=== PATIENT | female | born 1990 | race Caucasian/White ===

== ENCOUNTER 2016-09-21 15:47 | Emergency (ER) | payer SELFPAY ==
[~2016-09-21] VITALS: Ht 167.6 cm; Wt 56.5 kg
[~2016-09-21 15:47] MED LIST: NAPR500 PO
[2016-09-21 15:48] VITALS: BP 139/64; PULSE 103; RESP 18; TEMP 98.9; O2SAT 97
--- NOTE | 2016-09-21 15:57 | PD ---
Physical Exam Time Seen by Provider: 15:54 Narrative 26yo F c/o swelling, tightness, and pain in the back opf both legs since Monday with worsening yesterday. Nitesh injury. Worse in R leg. Also c/o pains in both arms and chest pain "for awhile." Reports feeling like her heart is racing at times. Denies SOB. Reports tobacco use. Patient seen in triage. VS reviewed. Awaiting bed placement. Data Data Last Documented VS Vital Signs Date Time Temp Pulse Resp B/P Pulse Ox O2 Delivery O2 Flow Rate FiO2 09/21/16 15:48 98.9 103 18 139/64 97 Room Air MDM Supervised Visit with SHANA: Sheila Lennon Sep 21, 2016 15:57
[2016-09-21] MEDS ORDERED: SODIUM CHLOR 0.9% 1000 ML INJ 1,000 ML IV SCH (16:52)
--- NOTE | 2016-09-21 16:55 | PD ---
HPI Chief Complaint: Pain: Acute or Chronic Time Seen by Provider: 16:45 Travel History International Travel<30 days: No Contact w/Intl Traveler<30days: No Traveled to known affect area: No History of Present Illness HPI 26-year-old female with no significant past medical history presents for evaluation of myalgias. Symptoms started 3 days ago. She describes it as a "tightness" in her thighs, calves, arms, chest. Symptoms are worse in her posterior thighs bilaterally. Symptoms are worse when walking. She denies any shortness of breath, nausea or vomiting, abdominal pain, fevers or chills, IV drug abuse. She denies any strenuous activity. She has never had this problem before. No other complaints. [facility] Past Medical History Diminished Hearing: No ?: Not LMP: 08/23/16 Past Surgical History Other Surgery: Yes (RHINOPLASTY) Social History Alcohol Use: No Tobacco Use: Yes (1 PPD) Substance Use: No Allergies-Medications (Allergen,Severity, Reaction): Coded Allergies: Sulfa (Verified Allergy, Intermediate, rash, 09/21/16) Reported Meds & Prescriptions Reported Meds & Active Scripts Active Baclofen 10 Mg Tab 10 Mg PO Q8HR PRN [address] (Diclofenac Sodium) 75 Mg Tabdr 75 Mg PO BID 7 Days Review of Systems Except as stated in HPI: all other systems reviewed are Neg Physical Exam Narrative GENERAL: Well-developed well-nourished female in no acute distress SKIN: Warm and dry. No edema, bruising, soft tissue swelling HEAD: Atraumatic. Normocephalic. EYES: Pupils equal and round. No scleral icterus. No injection or drainage. ENT: No nasal bleeding or discharge. Mucous membranes pink and moist. NECK: Trachea midline. No JVD. CARDIOVASCULAR: Regular rate and rhythm. No murmur appreciated. RESPIRATORY: No accessory muscle use. Clear to auscultation. Breath sounds equal bilaterally. GASTROINTESTINAL: Abdomen soft, non-tender, nondistended. Hepatic and splenic margins not palpable. MUSCULOSKELETAL: No obvious deformities. Full spontaneous range of motion of the upper and lower extremities. No edema in the upper or lower extremities. There is some tenderness to palpation to the posterior thighs bilaterally. No weakness. NEUROLOGICAL: Awake and alert. No obvious cranial nerve deficits. Motor grossly within normal limits. Normal speech. Data Data Last Documented VS Vital Signs Date Time Temp Pulse Resp B/P Pulse Ox O2 Delivery O2 Flow Rate FiO2 09/21/16 18:13 17 09/21/16 15:48 98.9 103 139/64 97 Room Air Orders Creatine Kinase (Cpk) (09/21/16 16:52) Basic Metabolic Panel (Bmp) (09/21/16 16:52) Complete Blood Count With Diff (09/21/16 16:52) Magnesium (Mg) (09/21/16 16:52) Urinalysis - C+S If Indicated (09/21/16 16:52) Sodium Chlor 0.9% 1000 Ml Inj (Ns 1000 M (09/21/16 16:52) Ketorolac Inj (Toradol Inj) (09/21/16 17:00) Ed Urine Pregnancytest Poc (09/21/16 16:52) Orphenadrine Inj (Norflex Inj) (09/21/16 17:00) Electrocardiogram (09/21/16 ) Labs Laboratory Tests Test 09/21/16 17:00 White Blood Count 10.2 TH/MM3 Red Blood Count 4.43 MIL/MM3 Hemoglobin 13.5 GM/DL Hematocrit 39.4 % Mean Corpuscular Volume 88.9 FL Mean Corpuscular Hemoglobin 30.5 PG Mean Corpuscular Hemoglobin 34.3 % Concent Red Cell Distribution Width 12.9 % Platelet Count 271 TH/MM3 Mean Platelet Volume 10.1 FL Neutrophils (%) (Auto) 58.4 % Lymphocytes (%) (Auto) 27.5 % Monocytes (%) (Auto) 11.6 % Eosinophils (%) (Auto) 1.8 % Basophils (%) (Auto) 0.7 % Neutrophils # (Auto) 5.9 TH/MM3 Lymphocytes # (Auto) 2.8 TH/MM3 Monocytes # (Auto) 1.2 TH/MM3 Eosinophils # (Auto) 0.2 TH/MM3 Basophils # (Auto) 0.1 TH/MM3 CBC Comment DIFF FINAL Differential Comment Urine Color YELLOW Urine Turbidity HAZY Urine pH 5.5 Urine Specific Sebastian 1.031 Urine Protein TRACE mg/dL Urine Glucose (UA) NEG mg/dL Urine Ketones NEG mg/dL Urine Occult Blood MOD Urine Nitrite NEG Urine Bilirubin NEG Urine Urobilinogen LESS THAN 2.0 MG/DL Urine Leukocyte Esterase NEG Urine RBC 1 /hpf Urine WBC 1 /hpf Urine Squamous Epithelial 7 /hpf Cells Urine Mucus MANY /lpf Microscopic Urinalysis Comment CULT NOT INDICATED Sodium Level 138 MEQ/L Potassium Level 4.6 MEQ/L Chloride Level 105 MEQ/L Carbon Dioxide Level 28.0 MEQ/L Anion Gap 5 MEQ/L Blood Urea Nitrogen 12 MG/DL Creatinine 0.71 MG/DL Estimat Glomerular Filtration 99 ML/MIN Rate Random Glucose 55 MG/DL Calcium Level 9.1 MG/DL Magnesium Level 2.2 MG/DL Total Creatine Kinase 135 U/L [facility] Medical Decision Making Medical Screen Exam Complete: Yes Emergency Medical Condition: Yes Medical Record Reviewed: Yes Interpretation(s) EKG normal sinus rhythm Differential Diagnosis Myalgias, electrolyte disturbance, dehydration, rhabdomyolysis Narrative Course 26-year-old female who has been experiencing myalgias in her legs, chest and arms for the past 3 days, symptoms are worse in the posterior thighs bilaterally. Physical examination reveals no obvious abnormality. She appears well. Plan is for basic lab work, EKG, IV fluids, Toradol and Norflex. The patient's lab work is unremarkable and reassuring. Upon examination she does feel better. Etiology for this patient's myalgias is unknown. The patient is being discharged with baclofen and diclofenac, recommend outpatient follow-up with primary care physician. Procedures EKG Prior to Arrival: Yes Diagnosis Primary Impression: Myalgia Additional Instructions: Medication as needed. Take diclofenac with meals. Do not drive or drink alcohol when taking baclofen. Stay well hydrated and well-nourished. Follow- up closely with primary care physician. Return for any emergent medical conditions. Med/Other Pt SpecificInfo: Prescription(s) given Scripts Baclofen 10 Mg Tab10 Mg PO Q8HR PRN (MUSCLE SPASM) 7 Days Ref 0 Prov:Iban Colin MD 09/21/[address] 75 Mg Tabdr75 Mg PO BID 7 Days Ref 0 Prov:Iban Colin MD 09/21/16 Disposition: 01 DISCHARGE HOME Condition: Stable Mart Gonzalez Sep 21, 2016 16:55
[2016-09-21] MEDS ORDERED: KETOROLAC TROMETHAMINE 30 MG/ML (IVP) VIAL IVP ONE (17:00)
[2016-09-21] MEDS ORDERED: ORPHENADRINE INJ 60 MG/2 ML AMP IV ONE (17:00)
[2016-09-21 17:45] LABS: AUTOMATED NEUTROPHIL # 5.9 TH/MM3 (1.8-7.7); BASOPHIL # 0.1 TH/MM3 (0-0.2); BASOPHIL % 0.7 % (0.0-2.0); EOSINOPHIL # 0.2 TH/MM3 (0-0.4); EOSINOPHIL % 1.8 % (0.0-4.0); HEMATOCRIT 39.4 % (35.0-46.0); HEMO FLAGS DIFF FINAL; LYMPH % 27.5 % (9.0-44.0); LYMPHOCYTE # 2.8 TH/MM3 (1.0-4.8); MEAN CELL VOLUME 88.9 FL (80.0-100.0); MEAN CORPUSCULAR HEMOGLOBIN 30.5 PG (27.0-34.0); MEAN CORPUSCULAR HGB CONC 34.3 % (32.0-36.0); MONO % 11.6 % (0.0-8.0); NEUT % 58.4 % (16.0-70.0); PLATELET COUNT 271 TH/MM3 (150-450); RED BLOOD COUNT 4.43 MIL/MM3 (4.00-5.30); RED CELL DISTRIBUTION WIDTH 12.9 % (11.6-17.2); WHITE BLOOD COUNT 10.2 TH/MM3 (4.0-11.0)
[2016-09-21 18:01] LABS: BLOOD, URINE MOD (NEG); COMMENT (UR) CULT NOT INDICATED; CULTURE IF INDICATED CULT NOT INDICATED; GLUCOSE,URINE NEG (NEG); KETONE, URINE NEG (NEG); MUCUS URINE MANY /lpf (OCC); NITRITE,URINE NEG (NEG); PH, URINE 5.5 (5.0-8.5); SQUAMOUS EPITHELIAL CELL URINE 7 /hpf (0-5); URINE COLOR YELLOW (YELLW/STRAW)
[2016-09-21 18:13] VITALS: RESP 17
[2016-09-21 18:18] LABS: MAGNESIUM 2.2 MG/DL (1.5-2.5)
[2016-09-21 18:22] LABS: POTASSIUM 4.6 MEQ/L (3.5-5.1)
[2016-09-21] MEDS ORDERED: DICL75TA PO (18:27)
[2016-09-21] MEDS ORDERED: BACL10TA PO (18:27)
[2016-09-21 18:40] VITALS: BP 120/77; TEMP 97.8
--- NOTE | 2016-09-22 13:59 | EKG ---
Date Performed: 09/21/2016 Time Performed: 17:26:32 PTAGE: 26 years EKG: Sinus rhythm NORMAL ECG NO PREVIOUS TRACING DOCTOR: Devon Nelson Interpretating Date/Time 09/22/2016 13:56:07
== END 2016-09-21 18:40 | disposition home or self-care (01) ==
LOC: NEPD 15:47
DX: M79.1 Myalgia (principal); F17.210 Nicotine dependence, cigarettes, uncomplicated
CPT/HCPCS: 80048; 81001; 82550; 83735; 84703; 85025; 93005; 96361; 96374; 96375; 99284; J1885; J2360; J7030